=== PATIENT | male | born 1980 | race Caucasian/White ===

== ENCOUNTER 2020-08-09 16:24 | Emergency (ER) | payer BC ==
[~2020-08-09] VITALS: Ht 182.9 cm; Wt 180.0 kg
[2020-08-09] MEDS ORDERED: LORazepam 2 mg/ml vial IV ONE (17:05)
[2020-08-09] MEDS ORDERED: normal saline 1000ML IV soln IVB ONE (17:05)
[2020-08-09 17:21] LABS: BASOPHILS # (AUTO) 0.1 X10'3 (0-0.2); BASOPHILS % (AUTO) 0.8 % (0-1); EOSINOPHILS % (AUTO) 0.7 % (0-6); HEMATOCRIT 39.2 % (42.0-52.0); HEMOGLOBIN 13.9 g/dl (14.0-17.9); LYMPHOCYTES # (AUTO) 0.6 X10'3 (1.1-4.8); LYMPHOCYTES % (AUTO) 8.3 % (21-51); MEAN CORPUSCULAR HEMOGLOBIN 33.5 PG (27.0-31.0); MEAN CORPUSCULAR HGB CONC 35.4 g/dL (33.0-36.5); MEAN CORPUSCULAR VOLUME 94.7 FL (78-98); MEAN PLATELET VOLUME 7.7 FL (7.4-10.4); MONOCYTES # (AUTO) 0.6 X10'3 (0-0.9); MONOCYTES % (AUTO) 9.5 % (2-12); NEUTROPHILS # (AUTO) 5.4 X10'3 (1.8-7.7); NEUTROPHILS % (AUTO) 80.7 % (42-75); PLATELET COUNT 154 X10'3 (140-440); RED BLOOD COUNT 4.14 X10'6 (4.70-6.10); RED CELL DISTRIBUTION WIDTH 13.1 % (11.5-14.5); WHITE BLOOD COUNT 6.7 X10'3 (4.5-11.0)
[2020-08-09 17:44] LABS: ALANINE AMINOTRANSFERASE 234 U/L (12-78); ALBUMIN 4.3 G/DL (3.4-5.0); ALKALINE PHOSPHATASE 65 IU/L (46-116); ANION GAP 18 (8-16); ASPARTATE AMINO TRANSFERASE 186 U/L (10-37); BILIRUBIN,TOTAL 0.8 MG/DL (0.1-1.0); BLOOD UREA NITROGEN 32 MG/DL (7-18); BUN/CREATININE RATIO 20.1 (5.4-32.0); CALCIUM 9.5 MG/DL (8.5-10.1); CHLORIDE 99 MMOL/L (99-107); CREATININE 1.59 MG/DL (0.60-1.10); GLUCOSE 161 MG/DL (70-104); POTASSIUM 3.2 MMOL/L (3.5-5.1); SODIUM 137 MMOL/L (135-145); TOTAL PROTEIN 8.6 G/DL (6.4-8.2); eGFR 49 ML/MIN
[2020-08-09 17:59] LABS: CLARITY,URINE CLOUDY (Clear); COLOR,URINE YELLOW (Yellow); GLUCOSE, URINE NEGATIVE (Neg); KETONES,URINE TRACE mg/dl (Neg); LEUKOCYTE ESTERASE ,URINE NEGATIVE (Neg); NITRITES, URINE NEGATIVE (Neg); OCCULT BLOOD,URINE LARGE (Neg); PH,URINE 5.5 (4.8-8.0); PROTEIN,URINE >=300 mg/dl (Neg); UA COLLECTION TYPE VOIDED; UROBILINOGEN,URINE 0.2 E.U/dL (0.2-1.0)
[2020-08-09 18:11] LABS: BACTERIA,URINE 2+ /HPF (Neg); HYALINE CASTS >30 /LPF (NEGATIVE); SQUAMOUS EPITHELIAL CELL,UR FEW /LPF (FEW)
[2020-08-09 18:12] LABS: RBC,URINE 0-2 /HPF (0-2); WBC,URINE 0-4 /HPF (0-4)
[2020-08-09 18:17] LABS: ABG HCO3 19.2 mmol/L (22.0-26.0); ABG OXYGEN SATURATION 94.5 % (94-97); ABG PCO2 (T) 27.3 mmHg (35.0-48.0); ABG PO2 (T) 73.8 mmHg (75.0-100.0); ALLEN'S TEST POSITIVE; FCOHb 0.1 % (0.0-3.9); FMetHb 0.4 % (0.0-1.5); TOTAL HEMOGLOBIN 14.1 G/dl (14.0-18.0)
[2020-08-09] MEDS ORDERED: normal saline 1000ml 1,000 ML IV ONE (18:35)
[2020-08-09] MEDS ORDERED: GABA300C PO (18:37)
[2020-08-09 19:08] VITALS: BP 134/74
--- NOTE | 2020-08-09 19:10 | NUR ---
IV DC, disconnected from monitor. dc instructions given and patient acknowledged understanding. VS WNL. Patient has no compaints. patient dc home.
== END 2020-08-09 19:11 | disposition home or self-care (01) ==
LOC: ER 16:25
DX: E86.0 Dehydration (principal); F10.129 Alcohol abuse with intoxication, unspecified; Z72.89 Other problems related to lifestyle; Z79.899 Other long term (current) drug therapy; Y90.9 Presence of alcohol in blood, level not specified
CPT/HCPCS: 36415; 36600; 80053; 81001; 82803; 85018; 85025; 93005; 96374; 99284; J2060; J7030